=== PATIENT | female | born 1985 | race African-American/Black ===

== ENCOUNTER 2017-07-03 20:15 | Emergency (ER) | payer OTHER ==
[~2017-07-03] VITALS: Ht 160 cm; Wt 88.5 kg
[2017-07-03 20:51] VITALS: BP 152/96
--- NOTE | 2017-07-03 21:13 | NUR ---
AMBULATED TO ER BED 7
--- NOTE | 2017-07-03 21:15 | NUR ---
PATIENT IS A 31 Y/O FEMALE WHO PRESENTS TO THE ED C/O RIGHT EAR PAIN. PT STATES, "I HAVE AN ABSCESS AND IT HAS BEEN HURTING FOR A WEEK NOW." PT REPORTS 10/10 TINGLING RIGHT EAR THAT DOES NOT RADIATE. PT DENIES CP, SOB, REPORTS VOMITING DENIES NAUSEA/DIARRHEA. NO OPEN BLEEDING NOTED, SMALL POUCH NOTED TO THE RIGHT EAR. PT AAOX4 RR EVEN/UNLABORED. PT REPOSITIONED FOR COMFORT, BED IN LOWEST POSITION. ER MD DR. JONES NOTIFIED. WILL CONTINUE TO MONITOR.
[2017-07-03] MEDS ORDERED: AMOXICILLIN 500 MG CAP PO ONE (22:05)
[2017-07-03] MEDS ORDERED: HYDROcodone/APAP 5/325 MG 1 TAB TAB PO ONE (22:05)
[2017-07-03 22:30] VITALS: BP 147/83
--- NOTE | 2017-07-03 22:30 | NUR ---
Patient discharged with v/s stable. Written and verbal after care instructions given and explained. Patient alert, oriented and verbalized understanding of instructions. Ambulatory with steady gait. All questions addressed prior to discharge. ID band removed. Patient advised to follow up with PMD. Rx of AMOXICILLIN, NORCO AND CIPRODEX given. Patient educated on indication of medication including possible reaction and side effects. Opportunity to ask questions provided and answered.
== END 2017-07-03 22:30 | disposition home or self-care (01) ==
LOC: MED 20:15
DX: H60.91 Unspecified otitis externa, right ear (principal); R03.0 Elevated blood-pressure reading, without diagnosis of hypertension
CPT/HCPCS: 99283

== ENCOUNTER 2018-05-03 20:45 | Emergency (ER) | payer SELFPAY ==
[~2018-05-03] VITALS: Ht 157.5 cm; Wt 90.7 kg
[2018-05-03 20:48] VITALS: BP 141/79
--- NOTE | 2018-05-03 20:50 | NUR ---
32 Y/O F W/C/O COUGH, SORETHROAT, BODY ACHES COLD SYMPTOMS X 1 WEEK. PT DENIES N/V/D; SKIN IS INTACT, PINK/WARM/DRY; AAOX4, PERRL, WITH EVEN AND STEADY GAIT; LUNGS CLEAR BL, BREATHING UNLABORED; HR EVEN AND REGULAR, BL PERIPHERAL PULSES PRESENT; BS ACTIVE X4, NO TENDERNESS TO PALPATION, NO HEPATOSPLENOMEGALLY PALPATED, RESONANT TO PERCUSSION; PT DENIES ANY CP, SOB AT THIS TIME; PT STATES 5/10 PAIN AT THIS TIME; VSS; PATIENT POSITIONED FOR COMFORT; HOB ELEVATED; BEDRAILS UP X2; BED DOWN.
--- NOTE | 2018-05-03 20:58 | NUR ---
PT TAKEN TO BED 9
--- NOTE | 2018-05-03 21:10 | NUR ---
DR LONG AT BEDSIDE FOR PATIENT EVALUATION
[2018-05-03 21:44] VITALS: BP 129/76
--- NOTE | 2018-05-03 21:44 | NUR ---
Patient discharged with v/s stable. Written and verbal after care instructions given and explained. Patient alert, oriented and verbalized understanding of instructions. Ambulatory with steady gait. All questions addressed prior to discharge. ID band removed. Patient advised to follow up with PMD. Rx of PROMETHAZINE, AUGMENTIN given. Patient educated on indication of medication including possible reaction and side effects. Opportunity to ask questions provided and answered.
== END 2018-05-03 21:44 | disposition home or self-care (01) ==
LOC: MED 20:45
DX: J06.9 Acute upper respiratory infection, unspecified (principal)
CPT/HCPCS: 99283

== ENCOUNTER 2018-07-05 18:41 | Emergency (ER) | payer MEDICAID ==
[~2018-07-05] VITALS: Ht 157.5 cm; Wt 92.1 kg
[2018-07-05 19:00] VITALS: BP 123/83
[2018-07-05] MEDS: ACETAMINOPHEN EXTRA STRENGTH 500 MG TAB PO ONE (20:01)
[2018-07-05] MEDS: NACL 0.9% 1,000 ML IV ONE (20:24)
[2018-07-05 20:35] LABS: BASOPHILS % (AUTO) 0.3 % (0.0-2.0); EOSINOPHILS # (AUTO) 0.2 K/uL (0-0.4); EOSINOPHILS % (AUTO) 2.1 % (0.0-4.0); HEMATOCRIT 36.4 % (36-48); HEMOGLOBIN 12.1 g/dL (12.0-16.0); LYMPHOCYTES # (AUTO) 2.7 K/uL (2.5-16.5); LYMPHOCYTES % (AUTO) 30.2 % (20.5-51.1); MEAN CORPUSCULAR HEMOGLOBIN 30 pg (27-31); MEAN CORPUSCULAR HGB CONC 33 g/dL (33-37); MEAN CORPUSCULAR VOLUME 91.3 fL (80-94); MONOCYTES # (AUTO) 0.5 K/uL (0.8-1.0); MONOCYTES % (AUTO) 5.7 % (1.7-9.3); NEUTROPHILS # (AUTO) 5.5 K/uL (1.8-7.7); NEUTROPHILS % (AUTO) 61.7 % (42.2-75.2); PLATELET COUNT (AUTO) 347 K/uL (140-450); RED BLOOD CELL COUNT(AUTO) 3.99 MIL/uL (4.20-5.40); WHITE BLOOD COUNT (AUTO) 8.9 K/uL (4.8-10.8)
[2018-07-05 20:54] LABS: ANION GAP 14.9 (8-16); CREATININE 0.8 mg/dL (0.6-1.3); POTASSIUM 3.9 mmol/L (3.5-5.1)
[2018-07-05 21:00] LABS: ALBUMIN 3.7 g/dL (3.4-5.0); TOTAL BILIRUBIN 0.9 mg/dL (0.0-1.0)
[2018-07-05 21:13] LABS: APPEARANCE,URINE CLEAR (CLEAR); BILIRUBIN,URINE NEGATIVE (NEGATIVE); BLOOD, URINE TRACE (NEGATIVE); COLOR,URINE YELLOW (YELLOW); LEUKOCYTE ESTERASE ,URINE 2+ (NEGATIVE); NITRITE, URINE NEGATIVE (NEGATIVE); UGLUCOSE NEGATIVE (NEGATIVE)
[2018-07-05 21:17] LABS: RBC,URINE 0-5 (RARE) /HPF (0-5); WBC,URINE 6-15 (FEW) /HPF (0-5)
[2018-07-05 22:05] VITALS: BP 165/79
== END 2018-07-05 22:05 | disposition home or self-care (01) ==
LOC: MED 18:41
DX: O23.41 Unspecified infection of urinary tract in pregnancy, first trimester (principal); Z3A.01 Less than 8 weeks gestation of pregnancy
CPT/HCPCS: 36415; 76817; 80053; 81001; 81025; 84702; 85025; 86900; 86901; 87086; 99284; J7030; Q0092; 87186